=== PATIENT | female | born 1975 | race Caucasian/White ===

== ENCOUNTER 2018-05-10 09:52 | Emergency (ER) | payer MEDICAID ==
[~2018-05-10] VITALS: Ht 165.1 cm; Wt 92.0 kg
[~2018-05-10 09:52] MED LIST: ACET-1757 PO; DAPT500V6 IV; METH10TA2 PO; NICO-487 TD
[2018-05-10 10:04] VITALS: BP 119/75
--- NOTE | 2018-05-10 10:17 | NUR ---
Presents for reported strep throat. Denies fevers. Able to talk/swallow w/out difficulty. Throat red/inflammed
--- NOTE | 2018-05-10 10:19 | NUR ---
Penicillin allergy removed as patient has been taking son's amoxicillin for the last 2 days w/ no ill effect
[2018-05-10] MEDS ORDERED: METH40TA3 PO (10:25)
[2018-05-10] MEDS ORDERED: DEXAMETHASONE 4 MG TABLET ONE (10:29)
[2018-05-10] MEDS ORDERED: DEXAMETHASONE 4 MG/ML, 1ML PO ONE (10:30)
[2018-05-10] MEDS ORDERED: DEXAMETHASONE 4 MG/ML, 1ML ONE (10:36)
== END 2018-05-10 10:40 | disposition home or self-care (01) ==
LOC: ED 10:30
DX: J03.90 Acute tonsillitis, unspecified (principal); Z87.891 Personal history of nicotine dependence
CPT/HCPCS: 99283; J1100